=== PATIENT | female | born 1990 | race Two or more races ===

== ENCOUNTER 2019-11-27 10:15 | Emergency (ER) | payer MEDICAID ==
[~2019-11-27] VITALS: Ht 154.9 cm; Wt 70.3 kg
[2019-11-27 10:31] VITALS: BP 129/81
[2019-11-27] MEDS ORDERED: Metoclopramide 10mg/2ml Inj IVP ONE (10:45)
[2019-11-27 11:31] LABS: BASOPHILS % (AUTO) 0.4 % (0.0-2.0); HEMATOCRIT 41.8 % (37.0-47.0); LYMPHOCYTES % (AUTO) 24.6 % (20.0-45.0); MEAN CORPUSCULAR VOLUME 93 FL (80-99); MONOCYTES % (AUTO) 6.9 % (1.0-10.0); NEUTROPHILS % (AUTO) 68.2 % (45.0-75.0); PLATELET COUNT 250 K/UL (150-450); RED BLOOD COUNT 4.49 M/UL (4.20-5.40); RED CELL DISTRIBUTION WIDTH 11.4 % (11.6-14.8); WHITE BLOOD COUNT 9.7 K/UL (4.8-10.8)
[2019-11-27 11:32] LABS: APPEARANCE,URINE CLOUDY; BILIRUBIN, URINE NEGATIVE (NEGATIVE); GLUCOSE, URINE (UA) NEGATIVE (NEGATIVE); KETONES,URINE 4+ (NEGATIVE); LEUKOCYTE ESTERASE ,URINE 1+ (NEGATIVE); NITRITE,URINE NEGATIVE (NEGATIVE); PH,URINE 5 (4.5-8.0); PROTEIN,URINE 1+ (NEGATIVE); UROBILINOGEN,URINE 1 MG/DL (0.0-1.0)
[2019-11-27 11:36] LABS: COLOR,URINE YELLOW
[2019-11-27 11:57] LABS: ANION GAP 14 mmol/L (5-15); BLOOD UREA NITROGEN 10 mg/dL (7-18); CALCIUM 9.5 MG/DL (8.5-10.1); CARBON DIOXIDE 23 MMOL/L (21-32); CHLORIDE 100 MMOL/L (98-107); CREATININE 0.7 MG/DL (0.55-1.30); POTASSIUM 3.7 MMOL/L (3.5-5.1); SODIUM 137 MMOL/L (136-145)
[2019-11-27 12:02] LABS: ALANINE AMINOTRANSFERASE 84 U/L (12-78); ALBUMIN 3.9 G/DL (3.4-5.0); ALBUMIN/GLOBULIN RATIO 0.9 (1.0-2.7); ALKALINE PHOSPHATASE 64 U/L (46-116); ASPARTATE AMINO TRANSFERASE 51 U/L (15-37); BILIRUBIN,TOTAL 0.9 MG/DL (0.2-1.0)
--- NOTE | 2019-11-27 12:27 | Diagnostic Imaging Report ---
Indication: Abdominal pain, patient, positive hCG Technique: Transabdominal only images of the pelvis. Transvaginal images not performed, per patient preference Comparison: none Findings: Lack of transvaginal imaging limits exam. Uterus measures 8.5 cm in length by 6.8 cm AP. Within the endometrium, there is a gestational sac. This demonstrates a pole with a crown-rump length of 3.4 cm, corresponding to an estimated gestational age of 10 weeks one day. There is positive heart activity, heart rate 160 bpm. The cervix is closed. No subchorionic hemorrhage. Neither ovary could be identified. No free cul-de-sac fluid Impression: Limited exam, due to lack of transvaginal images. 10 week 1 day, by crown-rump length measurement, single live intrauterine . No unusual features Note nonvisualization of the ovaries
[2019-11-27 12:40] VITALS: BP 125/82
[2019-11-27] MEDS ORDERED: DOXYLAMINE-PYR1 EACH PO (12:42)
[2019-11-27] MEDS ORDERED: CEPHALEXIN500 M1 ORAL (12:43)
--- NOTE | 2019-11-27 12:43 | Emergency Room Report ---
History of Present Illness General Chief Complaint: Nausea Source: Patient Present Illness HPI 29-year-old female G2, P1, presents with nausea vomiting currently in her first trimester no abdominal pain, she states she feels very nauseous has been taking Reglan daily, aggravated by her , no alleviating factors, severity is moderate, ongoing x 5 weeks. No f/c, dysuria, abdominal pain, diarrhea, cp or sob Allergies: Coded Allergies: No Known Allergies (Unverified , 11/27/19) COVID-19 Screening Contact w/high risk pt: No Experienced COVID-19 symptoms?: No COVID-19 Testing performed SHOE PACKER: No Patient History Past Medical History: see triage record Now: Yes - 11 weeks : 2 Para: 1 Reviewed Nursing Documentation: PMH: Agreed; PSxH: Agreed Nursing Documentation-PMH Past Medical History: No Stated History Review of Systems All Other Systems: negative except mentioned in HPI Physical Exam Vital Signs Date Time Temp Pulse Resp B/P (MAP) Pulse Ox O2 Delivery O2 Flow Rate FiO2 11/27/19 10:24 98.2 102 18 129/81 (97) 97 Room Air Sp02 EP Interpretation: reviewed, normal General Appearance: well appearing, no apparent distress, alert Head: normocephalic, atraumatic Eyes: bilateral eye PERRL, bilateral eye EOMI ENT: uvula midline, dry mucus membranes Neck: supple, thyroid normal, supple/symm/no masses Respiratory: lungs clear, no respiratory distress, no retraction, no accessory muscle use Cardiovascular #1: normal peripheral pulses, regular rate, rhythm, no edema, no gallop, no murmur Gastrointestinal: non tender, soft, no guarding, no rebound Musculoskeletal: normal inspection Neurologic: alert, oriented x3 Psychiatric: mood/affect normal Skin: no rash, warm/dry Medical Decision Making Diagnostic Impression: Primary Impression: Hyperemesis gravidarum Additional Impression: UTI (urinary tract infection) Qualified Codes: N30.00 - Acute cystitis without hematuria ER Course 29-year-old female G2, P1, 10 weeks of presents with acute nausea and vomiting, most consistent with hyperemesis gravidarum, patient with ketones in the urine, patient with possible bacteria, will start her on Keflex and, patient felt better with fluid rehydration 1 L, patient is tolerating p.o. Disposition home with return precautions Abdomen remains soft nontender Laboratory Tests Test 8/13/20 10:40 White Blood Count 9.7 K/UL (4.8-10.8) Red Blood Count 4.49 M/UL (4.20-5.40) Hemoglobin 14.0 G/DL (12.0-16.0) Hematocrit 41.8 % (37.0-47.0) Mean Corpuscular Volume 93 FL (80-99) Mean Corpuscular Hemoglobin 31.2 PG (27.0-31.0) H Mean Corpuscular Hemoglobin Concent 33.5 G/DL (32.0-36.0) Red Cell Distribution Width 11.4 % (11.6-14.8) L Platelet Count 250 K/UL (150-450) Mean Platelet Volume 6.4 FL (6.5-10.1) L Neutrophils (%) (Auto) 68.2 % (45.0-75.0) Lymphocytes (%) (Auto) 24.6 % (20.0-45.0) Monocytes (%) (Auto) 6.9 % (1.0-10.0) Eosinophils (%) (Auto) 0.0 % (0.0-3.0) Basophils (%) (Auto) 0.4 % (0.0-2.0) Urine Color Yellow Urine Appearance Cloudy Urine pH 5 (4.5-8.0) Urine Specific [place] 1.015 (1.005-1.035) Urine Protein 1+ (NEGATIVE) H Urine Glucose (UA) Negative (NEGATIVE) Urine Ketones 4+ (NEGATIVE) H Urine Blood 4+ (NEGATIVE) H Urine Nitrite Negative (NEGATIVE) Urine Bilirubin Negative (NEGATIVE) Urine Urobilinogen 1 MG/DL (0.0-1.0) H Urine Leukocyte Esterase 1+ (NEGATIVE) H Urine RBC 2-4 /HPF (0 - 2) H Urine WBC 2-4 /HPF (0 - 2) Urine Squamous Epithelial Cells Moderate /LPF (NONE/OCC) H Urine Bacteria Few /HPF (NONE) Urine HCG, Qualitative Positive (NEGATIVE) Sodium Level 137 MMOL/L (136-145) Potassium Level 3.7 MMOL/L (3.5-5.1) Chloride Level 100 MMOL/L (98-107) Carbon Dioxide Level 23 MMOL/L (21-32) Anion Gap 14 mmol/L (5-15) Blood Urea Nitrogen 10 mg/dL (7-18) Creatinine 0.7 MG/DL (0.55-1.30) Estimated Glomerular Filtration Rate > 60 mL/min (>60) Glucose Level 95 MG/DL (74-106) Calcium Level 9.5 MG/DL (8.5-10.1) Total Bilirubin 0.9 MG/DL (0.2-1.0) Aspartate Amino Transferase (AST) 51 U/L (15-37) H Alanine Aminotransferase (ALT) 84 U/L (12-78) H Alkaline Phosphatase 64 U/L (46-116) Total Protein 8.1 G/DL (6.4-8.2) Albumin 3.9 G/DL (3.4-5.0) Globulin 4.2 g/dL Albumin/Globulin Ratio 0.9 (1.0-2.7) L Lipase 112 U/L (73-393) Human Chorionic Gonadotropin, Quant 85598 mIU/mL (1-6) H CT/MRI/US Diagnostic Results CT/MRI/US Diagnostic Results : Impression Procedure: US OB 1st Trimester Gestation Indication: Abdominal pain, patient, positive hCG Technique: Transabdominal only images of the pelvis. Transvaginal images not performed, per patient preference Comparison: none Findings: Lack of transvaginal imaging limits exam. Uterus measures 8.5 cm in length by 6.8 cm AP. Within the endometrium, there is a gestational sac. This demonstrates a pole with a crown-rump length of 3.4 cm, corresponding to an estimated gestational age of 10 weeks one day. There is positive heart activity, heart rate 160 bpm. The cervix is closed. No subchorionic hemorrhage. Neither ovary could be identified. No free cul-de-sac fluid Impression: Limited exam, due to lack of transvaginal images. 10 week 1 day, by crown-rump length measurement, single live intrauterine . No unusual features Note nonvisualization of the ovaries Dictated By: Shaquille Meza MD Electronically Signed By: Shaquille Meza MD Signed Date/Time 11/27/19 1678 CC: Aaron Quevedo MD Last Vital Signs Date Time Temp Pulse Resp B/P (MAP) Pulse Ox O2 Delivery O2 Flow Rate FiO2 11/27/19 10:31 98.2 18 129/81 97 Room Air 11/27/19 10:24 102 Disposition: HOME, SELF-CARE Condition: Stable Scripts Cephalexin* (KEFLEX*) 500 Mg Tablet 500 MG ORAL EVERY 6 HOURS, #28 CAP Prov: Aaron Quevedo MD 11/27/19 Doxylamine Succinate/Vit B6 (Doxylamine-Pyridoxine 10-10 mg) 1 Each Tablet.dr 1 EACH PO Q6HR PRN for Nausea & Vomiting, #30 TAB Prov: Aaron Quevedo MD 11/27/19 Referrals: NOT CHOSEN IPA/,REFERRING (PCP) [facility] Patient Instructions: Eating Plan for Hyperemesis Gravidarum, Hyperemesis Gravidarum, Urinary Tract Infection, [id number] Additional Instructions: The patient was provided with discharge instructions, notified to follow-up with a primary care doctor and or specialist in the next 24-48 hours, and to return to the ED if they have worsening of their symptoms. Please note that this report is being documented using [employer] technology. This can lead to erroneous entry secondary to incorrect interpretation by the dictating instrument. Aaron Quevedo MD Nov 27, 2019 12:43
[2019-11-27 12:48] VITALS: BP 125/82
== END 2019-11-27 12:49 | disposition home or self-care (01) ==
LOC: EMR 10:29
DX: O21.0 Mild hyperemesis gravidarum (principal); O23.41 Unspecified infection of urinary tract in pregnancy, first trimester; Z3A.10 10 weeks gestation of pregnancy
CPT/HCPCS: 36415; 76801; 80053; 81003; 81025; 83690; 84702; 85025; 96361; 96374; J2765; J7030; Z7502; 99284